=== PATIENT | male | born 1945 | race Caucasian/White ===

== ENCOUNTER 2024-04-05 10:53 | Outpatient (OUT) | payer MEDICARE, SELFPAY ==
--- NOTE | 2024-04-05 | XR_ITS ---
[facility] [id number] Patient Name: BITA SOUSA MRN: [id number] date: 1945 Sex: M Assigned Patient Location: Current Patient Location: Accession/Order Number: [id number] Exam Date: 04/05/2024 13:52 Report Date: 04/05/2024 13:56 At the request of: ROCIO BETTS MD Procedure: XR knee LT 4V WEIGHTBEARING LEFT KNEE - 3 views COMPARISON: None CLINICAL DATA: Left knee pain. No reported injury however patient plays basketball. AP, lateral and sunrise views were obtained. No acute fractures or dislocation are noted. No patellar subluxation is seen. No disproportionate joint space narrowing is present. There is slight squaring off the articular margins. No focal soft tissue swelling is noted. A trace amount of joint fluid is seen. XR/XR knee LT 4V IMPRESSION: NO ACUTE BONY FINDINGS. Impression dictated by: Kristine Hansen M.D.04/05/2024 1:56 PM Dictation Location: [facility] Electronically authenticated by: [id number] Date: 04/05/2024 13:56
== END 2024-04-05 10:54 | disposition home or self-care (01) ==
LOC: EC 10:53
PROVIDERS: Visit Provider Orthopaedic Surgery
DX: M25.562 Pain in left knee (principal)
CPT/HCPCS: 73564